=== PATIENT | female | born 1970 | race African-American/Black ===

== ENCOUNTER 2020-05-02 16:07 | Inpatient (IN) | payer MEDICAID ==
[~2020-05-02] VITALS: Ht 165.1 cm; Wt 99.8 kg
[~2020-05-02 16:07] MED LIST: LEVO50TA8 PO; NITR100C11 PO; RISP0.5T19 PO
[2020-05-02] MEDS ORDERED: SODIUM CHLORIDE 0.9% 1,000 ML IV ONE (17:45)
[2020-05-02 18:03] LABS: BASOPHILS % 0.7 % (0.0-2.0); EOSINOPHILS % 0.8 % (0.0-5.0); HEMATOCRIT. 41.7 % (36.0-48.0); HEMOGLOBIN. 14.2 g/dL (12.0-16.0); LYMPHOCYTES % 24.9 % (20.0-50.0); MEAN CORPUSCULAR HEMOGLOBIN 35.1 pg (28.0-32.0); MEAN CORPUSCULAR VOLUME 103.1 fL (81.0-99.0); MEAN PLATELET VOLUME 8.1 fl (7.4-10.4); MONOCYTES % 7.1 % (2.0-8.0); NEUTROPHILS % 66.5 % (40.0-76.0); PLATELET 201 x1000/uL (130-400); RED BLOOD CELL COUNT 4.04 mill/uL (4.2-5.4); RED CELL DISTRIBUTION WIDTH 14.9 % (11.6-14.6)
[2020-05-02 18:10] LABS: CHLORIDE 104 mEq/L (98-107)
[2020-05-02 18:12] LABS: PROTHROMBIN TIME 10.9 sec (9.6-11.0)
[2020-05-02] MEDS ORDERED: MORPHINE SULFATE 4 MG/ML CPJ (NOT FOR IM USE) IV STA (18:21)
[2020-05-02] MEDS ORDERED: FAMOTIDINE 20MG/2ML VIAL IV STA (18:21)
[2020-05-02] MEDS ORDERED: ONDANSETRON HCL 4MG/2ML INJ IV STA (18:21)
[2020-05-02 18:58] LABS: CLARITY URINE CLOUDY (CLEAR); COLOR URINE YELLOW (YELLOW); KETONES URINE 1+ (NEGATIVE); LEUKOCYTE ESTERASE URINE 1+ (NEGATIVE); NITRITE URINE NEGATIVE (NEGATIVE); OCCULT BLOOD URINE NEGATIVE (NEGATIVE); PH URINE 6.5 (4.5-8.0); PROTEIN URINE 1+ (NEGATIVE); SPECIFIC GRAVITY URINE 1.021 (1.005-1.030)
[2020-05-02 18:58] LABS: HCG SCREEN NEGATIVE
[2020-05-02 19:09] LABS: *AMPHETAMINES SCREEN URINE NEGATIVE (NEGATIVE); CANNABINOID URINE SCREEN NEGATIVE (NEGATIVE); OPIATES URINE SCREEN NEGATIVE (NEGATIVE); PHENCYCLIDINE URINE SCREEN NEGATIVE (NEGATIVE)
[2020-05-02 19:10] LABS: *BARBITURATES SCREEN URINE NEGATIVE (NEGATIVE); *BENZODIAZEPINES SCREEN URINE NEGATIVE (NEGATIVE); *COCAINE SCREEN URINE NEGATIVE (NEGATIVE); METHADONE URINE SCREEN NEGATIVE (NEGATIVE)
[2020-05-02] MEDS ORDERED: CEFTRIAXONE 1 G PREMIX 50 ML IV ONE (19:30)
[2020-05-02] MEDS ORDERED: SODIUM CHLORIDE 0.9% 1000ML BAG (SEPSIS BOLUS) IV NR (21:08)
[2020-05-02] MEDS ORDERED: VANCOMYCIN 1 G PREMIX 200 ML IV ONE (21:15)
[2020-05-02] MEDS: SODIUM CHLORIDE 0.9% 1,000 ML IV SCH (21:52)
[2020-05-02] MEDS ORDERED: ONDANSETRON HCL 4MG/2ML INJ IV PRN (22:00)
[2020-05-02] MEDS ORDERED: IPRATROPIUM/ALBUTEROL 0.5-3(2.5)MG/3ML NEB NEB PRN (22:00)
[2020-05-02] MEDS ORDERED: DOCUSATE SODIUM 100MG CAPSULE PO PRN (22:00)
[2020-05-02] MEDS ORDERED: GUAIFENESIN 200MG/10ML SUGAR FREE UDC PO PRN (22:00)
[2020-05-02] MEDS ORDERED: MAGNESIUM/ALUMINUM HYDROXIDE/SIMETHICONE 30ML UDC PO PRN (22:00)
[2020-05-02] MEDS ORDERED: ENOXAPARIN 40MG/0.4ML SYR SUBCUT SCH (22:00)
[2020-05-02] MEDS ORDERED: ACETAMINOPHEN 325MG TABLET PO PRN ×2 (22:00)
[2020-05-02] MEDS ORDERED: TRAMADOL 50MG TABLET PO PRN (22:00)
[2020-05-02] MEDS ORDERED: LORAZEPAM 2MG/ML CPJ IV PRN (22:00)
[2020-05-02] MEDS ORDERED: NITROGLYCERIN 0.4MG TABLET SL SL PRN (22:00)
[2020-05-02] MEDS ORDERED: ZOLPIDEM TARTRATE 5MG TABLET PO PRN (22:00)
[2020-05-02] MEDS ORDERED: CLONIDINE 0.1MG TABLET PO PRN (22:00)
[2020-05-02] MEDS: KETOROLAC 15MG/ML VIAL IV PRN (22:25)
[2020-05-02] MEDS ORDERED: LEVOFLOXACIN 500MG PREMIX 100 ML IV SCH (23:00)
[2020-05-02] MEDS ORDERED: IOHEXOL-300 100 ML BOTTLE ONE (23:15)
[2020-05-02] MEDS ORDERED: MVI, ADULT NO.1 10 ML, FOLIC ACID 1 MG, THIAMINE HCL 100 MG in SODIUM CHLORIDE 0.9% 1,0... IV SCH ×4 (23:30)
[2020-05-03] MEDS: DILTIAZEM HCL 60MG TABLET PO SCH ×2 (01:23→05:26)
[2020-05-03] MEDS: CHLORDIAZEPOXIDE 5 MG CAPSULE PO SCH ×2 (01:23→05:26)
[2020-05-03 01:38] VITALS: BP 159/100
[2020-05-03] MEDS ORDERED: LEVOFLOXACIN 500MG PREMIX 100 ML IV SCH (03:00)
[2020-05-03 06:50] LABS: CHLORIDE 108 mEq/L (98-107)
[2020-05-03 06:58] LABS: AMYLASE 22 IU/L (25-115)
[2020-05-03 07:00] LABS: PHOSPHORUS 1.9 mg/dL (2.5-4.9)
[2020-05-03 08:00] VITALS: BP 143/96
[2020-05-03] MEDS: SODIUM CHLORIDE 0.9% 1,000 ML IV SCH (08:22)
[2020-05-03] MEDS ORDERED: ENOXAPARIN 30MG/0.3ML SYR SUBCUT SCH (09:00)
[2020-05-03] MEDS ORDERED: ZINC SULFATE 220 MG ( 50 ) CAPSULE PO SCH (09:00)
[2020-05-03] MEDS ORDERED: ASCORBIC ACID 500 MG TABLET PO SCH (09:00)
[2020-05-03 09:45] VITALS: BP 143/96
[2020-05-03] MEDS: KETOROLAC 15MG/ML VIAL IV PRN (09:45)
[2020-05-03 10:06] LABS: BASOPHILS % 0.4 % (0.0-2.0); EOSINOPHILS % 0.4 % (0.0-5.0); HEMOGLOBIN. 12.1 g/dL (12.0-16.0); LYMPHOCYTES % 12.5 % (20.0-50.0); MEAN CORPUSCULAR HEMOGLOBIN 34.8 pg (28.0-32.0); MEAN PLATELET VOLUME 8.3 fl (7.4-10.4); MONOCYTES % 8.1 % (2.0-8.0); NEUTROPHILS % 78.6 % (40.0-76.0); PLATELET 157 x1000/uL (130-400); RED BLOOD CELL COUNT 3.48 mill/uL (4.2-5.4); RED CELL DISTRIBUTION WIDTH 15.6 % (11.6-14.6)
[2020-05-03 10:08] LABS: MEAN CORPUSCULAR VOLUME 103.3 fL (81.0-99.0)
[2020-05-03] MEDS ORDERED: MAGNESIUM 4 G PREMIX 100 ML IV NR (10:30)
[2020-05-03] MEDS ORDERED: SODIUM PHOS,M-BASIC-D-BASIC 20 MM in DEXT 5% WATER 243.3333 ML IV NR (11:00)
[2020-05-03] MEDS ORDERED: CEFTRIAXONE 1,000 MG in DEXTROSE 5% WATER 50 ML IV SCH (20:00)
== END 2020-05-03 10:30 | disposition left against medical advice (07) | DRG 720 ==
LOC: ER 16:38 → 8WST 22:07 → ENRESERV 23:18
PROVIDERS: ADMIT Internal Medicine; ATTEND Internal Medicine
DX: A41.9 Sepsis, unspecified organism (principal); E03.9 Hypothyroidism, unspecified; E83.52 Hypercalcemia; I10 Essential (primary) hypertension; N39.0 Urinary tract infection, site not specified; Y90.6 Blood alcohol level of 120-199 mg/100 ml; E11.9 Type 2 diabetes mellitus without complications; Z53.29 Procedure and treatment not carried out because of patient's decision for other reasons; F10.239 Alcohol dependence with withdrawal, unspecified; Z98.891 History of uterine scar from previous surgery; K85.90 Acute pancreatitis without necrosis or infection, unspecified; K86.1 Other chronic pancreatitis
CPT/HCPCS: 36415; 71045; 74177; 80053; 80305; 80320; 81003; 82150; 83036; 83605; 83735; 84100; 84145; 84703; 85025; 93005; 93970; 99291; J0696; J1650; J1885; J1956; J2060; J2270; J2405; J3370; J3411; J3475; J3490; J7030; J7060; Q9967; G0480

== ENCOUNTER 2021-08-20 06:07 | Emergency (ER) | payer MEDICAID ==
[~2021-08-20] VITALS: Ht 177.8 cm; Wt 84.0 kg
[~2021-08-20 06:07] MED LIST changes: -RISP0.5T19 PO; +RISP0.5T65 PO
[2021-08-20 06:09] VITALS: BP 146/68
[2021-08-20] MEDS ORDERED: MORPHINE SULFATE 4 MG/ML CPJ (NOT FOR IM USE) IV STA (06:19)
[2021-08-20] MEDS ORDERED: FAMOTIDINE 20MG/2ML VIAL IV STA (06:19)
[2021-08-20] MEDS ORDERED: ONDANSETRON HCL 4MG/2ML INJ IV STA (06:19)
[2021-08-20] MEDS ORDERED: SODIUM CHLORIDE 0.9% 1,000 ML IV ONE (06:30)
[2021-08-20 08:42] LABS: BASOPHILS % 0.6 % (0.0-2.0); EOSINOPHILS % 0.4 % (0.0-5.0); HEMATOCRIT. 36.8 % (36.0-48.0); HEMOGLOBIN. 12.2 g/dL (12.0-16.0); LYMPHOCYTES % 9.7 % (20.0-50.0); MEAN CORPUSCULAR HEMOGLOBIN 34.4 pg (28.0-32.0); MEAN CORPUSCULAR VOLUME 103.8 fL (81.0-99.0); MEAN PLATELET VOLUME 8.5 fl (7.4-10.4); MONOCYTES % 4.8 % (2.0-8.0); NEUTROPHILS % 84.5 % (40.0-76.0); PLATELET 302 x1000/uL (130-400); RED BLOOD CELL COUNT 3.54 mill/uL (4.2-5.4); RED CELL DISTRIBUTION WIDTH 14.9 % (11.6-14.6)
[2021-08-20 08:49] LABS: CHLORIDE 102 mEq/L (98-107)
[2021-08-20 08:53] LABS: ETHANOL BLOOD 229 mg/dL
== END 2021-08-20 16:45 | disposition left against medical advice (07) ==
LOC: ER 06:07
DX: R10.33 Periumbilical pain (principal); S90.31XA Contusion of right foot, initial encounter; W18.49XA Other slipping, tripping and stumbling without falling, initial encounter; Y93.89 Activity, other specified; Y92.89 Other specified places as the place of occurrence of the external cause; F10.20 Alcohol dependence, uncomplicated; Y90.8 Blood alcohol level of 240 mg/100 ml or more; E11.9 Type 2 diabetes mellitus without complications; Z87.19 Personal history of other diseases of the digestive system
CPT/HCPCS: 36415; 71045; 73620; 80053; 80320; 83690; 83880; 84484; 85025; 93005; 99285; J7030; G0480

== ENCOUNTER 2023-08-24 14:59 | Emergency (ER) | payer MEDICAID ==
[~2023-08-24] VITALS: Ht 165.1 cm; Wt 65.0 kg
[2023-08-24 15:01] VITALS: O2SAT 100
[2023-08-24] MEDS ORDERED: LACTATED RINGERS 1,000 ML IV SCH (15:15)
[2023-08-24] MEDS ORDERED: METOCLOPRAMIDE HCL 10MG/2ML VIAL IV ONE (15:15)
[2023-08-24] MEDS ORDERED: FAMOTIDINE 20MG/2ML VIAL IV ONE (15:15)
[2023-08-24] MEDS ORDERED: LACTATED RINGERS 500 ML IV SCH (15:30)
[2023-08-24 16:10] LABS: BASOPHILS % 0.3 % (0.0-2.0); DIFFERENTIAL COMMENT 0; EOSINOPHILS % 0.2 % (0.0-5.0); HEMATOCRIT. 27.2 % (36.0-48.0); HEMOGLOBIN. 8.9 g/dL (12.0-16.0); LYMPHOCYTES % 17.6 % (20.0-50.0); MEAN CORPUSCULAR HEMOGLOBIN 33.8 pg (28.0-32.0); MEAN CORPUSCULAR HGB CONC 32.8 g/dL (31.0-37.0); MEAN CORPUSCULAR VOLUME 103.2 fL (81.0-99.0); MEAN PLATELET VOLUME 10.6 fl (7.4-10.4); MONOCYTES % 10.3 % (2.0-8.0); NEUTROPHILS % 71.6 % (40.0-76.0); PLATELET 89 x1000/uL (130-400); RED BLOOD CELL COUNT 2.64 mill/uL (4.2-5.4); RED CELL DISTRIBUTION WIDTH 16.3 % (11.6-14.6); WHITE BLOOD COUNT 10.7 x1000/uL (4.5-11.0)
[2023-08-24 16:27] LABS: ALANINE AMINOTRANSFERASE 23 IU/L (10-49); ALBUMIN 2.3 g/dL (3.2-4.8); ASPARTATE AMINOTRANSFERASE 85 IU/L (<34); BILIRUBIN TOTAL 6.8 mg/dL (0.1-1.0); CALCIUM 7.7 mg/dL (8.7-10.4); CARBON DIOXIDE 32 mEq/L (21-32); CHLORIDE 92 mEq/L (98-107); GLUCOSE 145 mg/dL (70-105); PROTEIN TOTAL 5.8 g/dL (6.0-8.3); SODIUM 134 mEq/L (136-145); TROPONIN I HIGH SENSITIVITY 5 ng/L (3.0-34); UREA NITROGEN BLOOD 8 mg/dL (9-23)
[2023-08-24 16:42] LABS: AMMONIA 38 uMol/L (<32)
[2023-08-24 16:47] LABS: POTASSIUM 2.8 mEq/L (3.5-5.1)
[2023-08-24 16:48] LABS: LACTIC ACID 2.2 mmol/L (0.4-2.0)
[2023-08-24] MEDS ORDERED: POTASSIUM CHLORIDE INJ 40 MEQ in DEXT 5% WATER 500 ML IV ONE (17:15)
[2023-08-24] MEDS ORDERED: POTASSIUM CHLORIDE 20MEQ/PACKET PO ONE (17:15)
[2023-08-24] MEDS ORDERED: MSCON15 PO (17:24)
[2023-08-24] MEDS ORDERED: FURO40TA5 PO (17:24)
[2023-08-24] MEDS ORDERED: GABA-532 PO (17:24)
[2023-08-24] MEDS ORDERED: NALO4SPR SL (17:24)
[2023-08-24] MEDS ORDERED: OMEP20CA14 PO (17:24)
[2023-08-24] MEDS ORDERED: HYDR-3782 PO (17:24)
[2023-08-24] MEDS ORDERED: POTA-203 PO (17:24)
[2023-08-24] MEDS ORDERED: DOCU-150 PO (17:24)
[2023-08-24] MEDS ORDERED: FOLI0.4T6 PO (17:24)
[2023-08-24] MEDS ORDERED: TRAZ-251 PO (17:24)
[2023-08-24] MEDS ORDERED: ATOR20TA65 PO (17:24)
[2023-08-24] MEDS ORDERED: LACT10SO3 PO (17:24)
[2023-08-24] MEDS ORDERED: MAGNESIUM 2 G PREMIX 50 ML IV ONE (18:00)
[2023-08-24] MEDS ORDERED: MORPHINE SULFATE 4 MG/ML CPJ (NOT FOR IM USE) IV ONE ×2 (18:00→23:00)
[2023-08-24 20:19] LABS: CALCIUM 7.5 mg/dL (8.7-10.4); CARBON DIOXIDE 32 mEq/L (21-32); CHLORIDE 93 mEq/L (98-107); CREATININE 0.9 mg/dL (0.6-1.0); GLUCOSE 142 mg/dL (70-105); POTASSIUM 3.2 mEq/L (3.5-5.1); SODIUM 133 mEq/L (136-145); UREA NITROGEN BLOOD 7 mg/dL (9-23)
[2023-08-24 21:02] LABS: CLARITY URINE TURBID (CLEAR); COLOR URINE DARK YELLOW (YELLOW); GLUCOSE URINE NEGATIVE (NEGATIVE); KETONES URINE 1+ (NEGATIVE); LEUKOCYTE ESTERASE URINE 2+ (NEGATIVE); NITRITE URINE NEGATIVE (NEGATIVE); OCCULT BLOOD URINE TRACE (NEGATIVE); PH URINE 6.5 (4.5-8.0); PROTEIN URINE 1+ (NEGATIVE); SPECIFIC GRAVITY URINE 1.068 (1.005-1.030)
[2023-08-24 21:11] LABS: BACTERIA URINE 4+; RBC URINE 0-2 /hpf (0-2); SQUAMOUS EPITHELIAL CELL URINE 1+ /lpf (RARE/1+)
[2023-08-24] MEDS ORDERED: CEFTRIAXONE 1GM PREMIX 50 ML IV ONE (22:30)
[2023-08-24] MEDS ORDERED: IOHEXOL-300 100 ML BOTTLE ONE (23:08)
[2023-08-25 00:56] VITALS: BP 96/63; PULSE 113; RESP 20; TEMP 98.3
== END 2023-08-25 01:08 | disposition short-term general hospital (02) ==
LOC: ER 14:59 → CANBEDREQ 08-26 10:42
DX: R53.1 Weakness (principal); N39.0 Urinary tract infection, site not specified; R07.89 Other chest pain; R10.10 Upper abdominal pain, unspecified; R55 Syncope and collapse; I95.9 Hypotension, unspecified; E83.42 Hypomagnesemia; E87.6 Hypokalemia; E11.9 Type 2 diabetes mellitus without complications; I10 Essential (primary) hypertension; F10.229 Alcohol dependence with intoxication, unspecified; Y90.0 Blood alcohol level of less than 20 mg/100 ml
CPT/HCPCS: 80053; 80048; 81003; 82140; 83605; 83690; 83735; 85025; 87040; 87086; 87186; 84484; 87077; 36415; 71045; 74177; 93005; 96367; 96365; 96375; 96376; 99285; Q9967; J0696; J3475; J3480; J2270; J7060; Z7610 ×4